=== PATIENT | male | born 1995 | race Two or more races ===

== ENCOUNTER → 2016-06-16 | Outpatient (CLI) | payer OTHER ==
--- NOTE | 2016-06-16 15:04 | REP ---
Clinical: Trauma. Injury. Technique: AP, lateral, bilateral oblique views of the right ankle. Findings: Lateral soft tissue swelling. No acute fracture or dislocation. Joint spaces and ankle mortise intact. Impression: Lateral swelling. No acute fracture or dislocation. Signed by Daniel Ricks MD 06/16/2016 02:55 P
== END ==
LOC: M WUC 14:33
PROVIDERS: ATTEND Physician Assistant
DX: S96.022A Laceration of muscle and tendon of long flexor muscle of toe at ankle and foot level, left foot, initial encounter (principal); X58.XXXA Exposure to other specified factors, initial encounter; Y92.9 Unspecified place or not applicable; M79.9 Soft tissue disorder, unspecified

== ENCOUNTER → 2020-11-20 | Outpatient (CLI) | payer BC, OTHER ==
[2020-11-20 13:26] LABS: BASO # 0.1 10^3/uL (0.0-0.2); BASO % 1.1 % (0.0-1.0); EOS # 0.7 10^3/uL (0.0-0.5); EOS % 6.2 % (0.0-3.0); HEMATOCRIT 48.8 % (42.0-52.0); HEMOGLOBIN 15.8 g/dl (13.5-17.5); MEAN CORPUSCULAR HEMOGLOBIN 29.3 pg (27.0-33.0); MEAN CORPUSCULAR HGB CONC 32.4 g/dl (32.0-36.5); MEAN CORPUSCULAR VOLUME 90.5 fl (80.0-96.0); MONO # 0.8 10^3/uL (0.0-0.8); MONO % 7.3 % (2.0-8.0); NEUTROPHILS # 7.4 10^3/uL (1.5-8.5); PLATELET COUNT, AUTOMATED 298 10^3/uL (150-450); RED BLOOD COUNT 5.39 10^6/uL (4.30-6.10)
[2020-11-20 14:08] LABS: ALBUMIN 4.3 GM/DL (3.2-5.2); ALT/SGPT 28 U/L (12-78); BILIRUBIN,DIRECT 0.2 MG/DL (0.0-0.2); BILIRUBIN,TOTAL 0.6 MG/DL (0.2-1.0); BLOOD UREA NITROGEN 11 MG/DL (7-18); CREATININE FOR GFR 1.06 MG/DL (0.70-1.30); GLOMERULAR FILTRATION RATE > 60.0 (>60); IRON (FE) 153 UG/DL (65-175); PERCENT SATURATION 52.4 % (19.7-50.0); TOTAL IRON BINDING CAPACITY 292 UG/DL (250-450); TOTAL PROTEIN 7.8 GM/DL (6.4-8.2)
== END ==
LOC: M LAB 12:41
PROVIDERS: ATTEND Internal Medicine Gastroenterology
DX: R10.13 Epigastric pain (principal)

== ENCOUNTER → 2020-12-17 | Outpatient (REF) | payer BC, OTHER | LOC: M LAB REF 13:36 | PROVIDERS: ATTEND Internal Medicine Gastroenterology | DX: R10.13 Epigastric pain (principal); R19.7 Diarrhea, unspecified ==

== ENCOUNTER → 2021-02-01 | Outpatient (CLI) | payer OTHER | LOC: M OUTALCOH 08:08 | PROVIDERS: ATTEND Psychiatry & Neurology Psychiatry | DX: Z03.89 Encounter for observation for other suspected diseases and conditions ruled out (principal) ==

== ENCOUNTER → 2023-03-11 | Outpatient (CLI) | payer BC, OTHER | LOC: M CARPUL 11:05 | PROVIDERS: ATTEND Physician Assistant | DX: J45.909 Unspecified asthma, uncomplicated (principal) ==